=== PATIENT | female | born 1975 | race Caucasian/White ===

== ENCOUNTER → 2020-07-31 | Outpatient (CLI) | payer MEDICAID | END | disposition home or self-care (01) | LOC: RAD 08:22 | PROVIDERS: ATTEND Surgery | DX: Z01.818 Encounter for other preprocedural examination (principal); K21.9 Gastro-esophageal reflux disease without esophagitis; E66.01 Morbid (severe) obesity due to excess calories; Z68.42 Body mass index [BMI] 45.0-49.9, adult | CPT/HCPCS: 71046; 74240 ==